=== PATIENT | male | born 1970 | race Caucasian/White ===

== ENCOUNTER 2018-01-25 22:40 | Emergency (ER) | payer SELFPAY ==
[2018-01-25 22:50] VITALS: BP 121/75; PULSE 108; TEMP 100.2; BMI 28.7
--- NOTE | 2018-01-25 23:02 | PDOC ---
History of Present Illness - General Chief Complaint: Pain Stated Complaint: MALAISE/ACHES & PAINS Time Seen by Provider: 01/25/18 22:47 History Source: Patient Exam Limitations: No Limitations - History of Present Illness Initial Comments: 01/25/18 23:11 This is a 47-year-old male comes in with his for evaluation of body aches, joint aches, muscle aches, cough, congestion, upper respiratory tract symptoms. The patient said he has had symptoms times approximately one week now. Patient did not see his primary care doctor and denies any other complaints. Patient is otherwise healthy. PAST MEDICAL HISTORY: no significant history PAST SURGICAL HISTORY: no significant history FAMILY HISTORY: no pertinant history SOCIAL HISTORY: Pt lives with family and is employed. MEDICATIONS: reviewed ALLERGIES: As per nursing notes ROS General: No fevers or chills, no weakness, no weight loss HEENT: No change in vision. + sore throat,. No ear pain CardioVascular: No chest pain or shortness of breath Respiratory:No cough, or wheezing. Gastrointestinal: no nausea, vomiting, diarrhea or constipation, No rectal bleeding Genitourinary: No dysuria, hematuria, or frequency Musculoskeletal: . + joint pain no swelling Neurologic: + headache, vertigo, dizziness or loss of consciousness Psychiatric: nor depression Skin: No rashes or easy bruising Endocrine: no increased thirst or abnormal weight change Allergic: no skin or latex allergy All other systems reviewed and normal Exam: General: Well-nourished well-developed individual, no acute distress HEENT: Throat: Normal, tonsils normal, no erythema or exudate Neck: Supple, no meningeal signs, no lymphadenopathy Eyes::Pupils equal reactive and round, extraocular motion intact Chest: Nontender to palpation Cardiac: S1-S2 normal, regular rate and rhythm, no murmurs rubs or gallops Respiratory: Lungs clear to auscultation bilateral Abdomen: Soft, nondistended, normal bowel sounds, there is no tenderness on palpation diffusely Extremities: Warm, dry, no cyanosis, clubbing, or edema Skin: No rashes Neuro: Alert and oriented x3, CN II - XII intact, nonfocal exam with normal strength, normal sensation, normal reflexes, normal gait, Psych: Normal mood and affect Chest x-ray and air bronchogram on the right questionable bronchitis/versus early pneumonia 01/25/18 23:14 01/25/18 23:49 Patient has a 19,000 white count but there is no left shift as a predominance of lymphs and monocytes Patient given azithromycin 500 mg IV Past History - Past Medical History Allergies/Adverse Reactions: Allergies Allergy/AdvReac Type Severity Reaction Status Date / Time No Known Allergies Allergy Unverified 02/01/16 21:08 Home Medications: Ambulatory Orders Cyclobenzaprine HCl [Flexeril -] 10 mg PO TID #21 tablet 02/01/16 Naproxen [Naprosyn -] 500 mg PO BID #20 tablet 02/01/16 Azithromycin 250 mg PO DAILY #4 tablet 01/26/18 COPD: No - Suicide/Smoking/Psychosocial Hx Smoking History: Current every day smoker Number of Cigarettes Smoked Daily: 5 Information on smoking cessation initiated: Yes 'Breaking Loose' booklet given: 02/01/16 Hx Alcohol Use: No Drug/Substance Use Hx: No Substance Use Type: None *Physical Exam - Vital Signs Last Vital Signs Temp Pulse Resp BP Pulse Ox 100.2 F H 108 H 18 121/75 97 01/25/18 22:41 01/25/18 22:41 01/25/18 22:41 01/25/18 22:41 01/25/18 22:41 ED Treatment Course - LABORATORY CBC & Chemistry Diagram: 01/25/18 23:10 01/25/18 23:10 *DC/Admit/Observation/Transfer Diagnosis at time of Disposition: Bronchitis, okay - Discharge Dispostion Disposition: HOME Condition at time of disposition: Stable Decision to Admit order: No - Prescriptions Prescriptions: Azithromycin 250 mg PO DAILY #4 tablet - Referrals - Patient Instructions Additional Instructions: Tylenol or Motrin as needed for pain or fevers. Take as directed on the bottle Take azithromycin 1 tablet a day for the next 4 days next dose is due this evening.. Return to the emergency department immediately with ANY new, persistent or worsening symptoms. Continue any medications as previously prescribed by your physician. You should follow up with your primary doctor as soon as possible regarding today's emergency department visit. . Please make sure your doctor reviews the results of your emergency evaluation. Thank you for coming to the Emergency Department today for your care. It was a pleasure to see you today. Please note that your evaluation is INCOMPLETE until you follow-up with your doctor. - Post Discharge Activity
[2018-01-25] MEDS ORDERED: ACETAMINOPHEN 500 MG TABLET (FP) PO ONE (23:15)
[2018-01-25 23:25] LABS: HEMATOCRIT 46.8 % (35.4-49); HEMOGLOBIN 16.2 GM/dl (11.7-16.9); MCH 35.7 pg (25.7-33.7); MCHC 34.7 g/dl (32.0-35.9); MEAN CELL VOLUME 103.1 fl (80-96); MEAN PLT VOLUME 8.7 fl (7.5-11.1); PLATELET COUNT 192 K/MM3 (134-434); RBC 4.54 M/mm3 (4.00-5.60); RDW 12.3 % (11.9-15.9); WHITE BLOOD COUNT 19.1 K/mm3 (4.0-10.8)
[2018-01-25] MEDS ORDERED: ACETAMINOPHEN 500 MG TABLET (FP) ONE (23:32)
[2018-01-25 23:37] LABS: PLATELET ESTIMATE ADEQUATE
[2018-01-25 23:38] LABS: ALBUMIN 4.2 g/dl (3.5-5.0); ALK PHOS 62 U/L (32-92); ANION GAP 10 MMOL/L (8-16); BILIRUBIN,TOTAL 0.9 mg/dl (0.2-1.0); BLOOD UREA NITROGEN 10 mg/dl (7-18); CALCIUM 8.9 mg/dl (8.4-10.2); CHLORIDE 104 mmol/L (98-107); CO2 24 mmol/L (22-28); CREATININE 0.9 mg/dl (0.6-1.3); GLUCOSE,RANDOM 99 mg/dl (74-106); POTASSIUM 4.5 mmol/L (3.5-5.1); SGOT/AST 31 U/L (10-42); SGPT/ALT 43 U/L (10-40); SODIUM 138 mmol/L (136-145); TOT PROT 7.2 g/dl (6.4-8.3)
[2018-01-25] MEDS ORDERED: KETOROLAC TROMETHAMINE 30 MG/1 ML VIAL IVPUSH ONE (23:38)
[2018-01-25] MEDS ORDERED: AZITHROMYCIN IVPB 500 MG in DEXTROSE 5%-WATER - 250 ML IVPB ONE (23:48)
[2018-01-25] MEDS ORDERED: AZITHROMYCIN 500 MG VIAL IVPB ONE (23:50)
== END 2018-01-26 01:39 | disposition home or self-care (01) ==
LOC: FER 22:40
PROC: 3E03329 Introduction of Other Anti-infective into Peripheral Vein, Percutaneous Approach (ICD-10-PCS; principal; 2018-01-25)
PROC: 3E0333Z Introduction of Anti-inflammatory into Peripheral Vein, Percutaneous Approach (ICD-10-PCS; 2018-01-25)
DX: J40 Bronchitis, not specified as acute or chronic (principal)
CPT/HCPCS: 36415; 71045-TC-FY; 80053; 83605; 85025; 86140; 87040; 99281-25

== ENCOUNTER 2019-03-30 20:47 | Emergency (ER) | payer OTHER ==
[2019-03-30] MEDS ORDERED: ACETAMINOPHEN 325 MG TABLET (FP) ONE (20:53)
[2019-03-30 20:57] VITALS: BMI 30.1
[2019-03-30] MEDS ORDERED: ACETAMINOPHEN 325 MG TABLET (FP) PO ONE (21:11)
[2019-03-30 22:22] VITALS: TEMP 99.6
--- NOTE | 2019-03-31 01:16 | PDOC ---
Documentation entered by Wandy Lee SCRIBE, acting as scribe for Ema Florence MD. Ema Florence MD: This documentation has been prepared by the Rosa espinoza Mackenzie, SCRIBE, under my direction and personally reviewed by me in its entirety. I confirm that the documentation accurately reflects all work , treatment, procedures, and medical decision making performed by me. History of Present Illness - General Chief Complaint: Cold Symptoms Stated Complaint: F/C/COUGH History Source: Patient Exam Limitations: No Limitations - History of Present Illness Initial Comments: This 48-year-old man without significant past medical history presents with cough productive of whitish sputum for the last 3 days, chest pain with deep breathing that resolved yesterday and fever for the last 48 hours. 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 He denies nausea/vomiting/diarrhea. He states that he self-administered a large amount of guaifenesin yesterday (for example, use Mucinex and Robitussin concurrently) to treat his cough and felt discomfort soon after that. No daily medications No known allergies Smokes approximately half a pack of tobacco cigarettes daily; no daily alcohol although he did drink while visiting friends last night; no other recreational drug use Past History - Past Medical History Allergies/Adverse Reactions: Allergies Allergy/AdvReac Type Severity Reaction Status Date / Time No Known Allergies Allergy Verified 03/30/19 20:48 Home Medications: Ambulatory Orders NK [No Known Home Medication] 03/30/19 COPD: No CHF: No - Psycho Social/Smoking Cessation Hx Smoking History: Never smoked Number of Cigarettes Smoked Daily: 8 'Breaking Loose' booklet given: 02/01/16 Hx Alcohol Use: Yes (OCASIONAL) Drug/Substance Use Hx: No Substance Use Type: None Review of Systems - Review of Systems Able to Perform ROS?: Yes Comments:: 12 point review of systems is negative except for what is noted in the history of present illness *Physical Exam - Vital Signs Last Vital Signs Temp Pulse Resp BP Pulse Ox 101.5 F H 114 H 18 116/78 100 03/30/19 20:48 03/30/19 20:48 03/30/19 20:48 03/30/19 20:48 03/30/19 20:48 - Physical Exam GENERAL: Adult male, alert and oriented x3, no acute distress HEAD: Normal with no signs of trauma. EYES: PERRLA, EOMI, sclera anicteric, conjunctiva clear. ENT: Ears normal, nares patent, oropharynx clear without exudates. Dry mucous membranes. NECK: Normal range of motion, supple without lymphadenopathy, JVD, or masses. LUNGS: Breath sounds equal, clear to auscultation bilaterally. No wheezes, and no crackles. HEART:Regular rate and rhythm, normal S1 and S2 without murmur, rub or gallop. ABDOMEN:.normal bowel sounds soft, mildly distended, marked right lower quadrant tenderness without involuntary guarding but mild rebound tenderness EXTREMITIES: Normal range of motion, no edema. No clubbing or cyanosis. No erythema, or tenderness. NEUROLOGICAL: Cranial nerves II through XII grossly intact. Normal speech. No focal neurological deficits. MUSCULOSKELETAL: Back non-tender to palpation, no CVA tenderness SKIN: Warm, Dry, normal turgor, no rashes or lesions noted. ED Treatment Course - LABORATORY CBC & Chemistry Diagram: 03/31/19 00:45 03/31/19 00:45 - Medications Given in the ED: ED Medications Discontinued Medications Generic Name Dose Route Start Last Admin Trade Name Freq PRN Reason Stop Dose Admin Acetaminophen 650 mg 03/30/19 21:11 03/30/19 21:12 Tylenol - PO 03/30/19 21:12 650 mg ONCE ONE Administration Medical Decision Making - Medical Decision Making This otherwise healthy 48-year-old man, smoker, presents with few day history of productive cough and 1 day history of abdominal discomfort and fever. Exam notable for fever on presentation (101.5 F), clear lung zee and localized right lower quadrant abdominal tenderness. Influenza nasopharyngeal swab sent after triage: Negative for influenza A/ negative for influenza B CBC/chemistry profile/urinalysis sent Although patient appears to have upper respiratory/lower respiratory viral infection, he has a 1 day history of abdominal discomfort and exam notable for localized tenderness in the right lower quadrant. Abdominal/pelvic CT ordered to evaluate for acute appendicitis or other acute pathology localized to the right lower quadrant of his abdomen. CBC notable for normal white blood cell count (6900) with predominance of monocytes on differential, elevated hemoglobin/hematocrit; MCV of 108 Chemistry profile notable for AST of 190 and ALT of 340. Otherwise, chemistry profile and urinalysis are unremarkable Abdominal/pelvic CT performed with preliminary interpretation by Imaging education administrative assistant borderline dilated appendix at 7 mm. The appendix does not fill with contrast. However, the appendix is not discretely inflamed. There is mild edema at the base of the cecum. These findings "could represent early appendicitis" Results discussed with the patient. He was explained that he would likely need to be admitted for evaluation by general surgery and possible repeat of CT to determine if inflammation progressed. The patient states that he is feeling much better and that the discomfort and tenderness that he felt in his abdomen has now resolved. He states that he does not want to be admitted and will sign out AGAINST MEDICAL ADVICE. The dangers of progression of acute appendicitis including perforation and generalized peritonitis/sepsis explained to the patient. He understands the risks of leaving. He states that he will return if he is feeling any recurrence of his pain or if he develops fever Discharge - Discharge Information Problems reviewed: Yes Clinical Impression/Diagnosis: Abdominal pain Qualifiers: Abdominal location: right lower quadrant Qualified Code(s): R10.31 - Right lower quadrant pain Condition: Guarded Disposition: AGAINST MEDICAL ADVICE - Follow up/Referral - Patient Discharge Instructions - Post Discharge Activity Work/Back to School Note: Back to Work
[2019-03-31 01:38] LABS: PH,URINE 5.5 (5.0-8.0); URINE APPEARANCE CLEAR; URINE BILIRUBIN NEGATIVE (NEGATIVE); URINE COLOR DK YELLOW; URINE GLUCOSE (UA) NEGATIVE (NEGATIVE); URINE KETONE NEGATIVE (NEGATIVE); URINE LEUK ESTERASE NEGATIVE (NEGATIVE); URINE NITRITE NEGATIVE (NEGATIVE); URINE PROTEIN TRACE (NEGATIVE)
[2019-03-31 01:44] LABS: BASO % 0.4 % (0-2.0); HEMATOCRIT 50.8 % (35.4-49); LYMPH % 26.5 % (8-40); MCH 36.5 pg (25.7-33.7); MCHC 33.6 g/dl (32.0-35.9); MEAN CELL VOLUME 108.8 fl (80-96); MEAN PLT VOLUME 9.7 fl (7.5-11.1); MONO % 18.7 % (3.8-10.2); NEUT % 53.4 % (42.8-82.8); PLATELET COUNT 147 K/MM3 (134-434); RBC 4.67 M/mm3 (4.00-5.60); RDW 14.1 % (11.9-15.9); WHITE BLOOD COUNT 6.9 K/mm3 (4.0-10.0)
[2019-03-31 02:26] LABS: BLOOD UREA NITROGEN 9.7 mg/dL (7-18); POTASSIUM 3.8 mmol/L (3.5-5.1)
[2019-03-31 02:27] LABS: ALBUMIN 3.5 g/dl (3.4-5.0); BILIRUBIN,TOTAL 0.3 mg/dL (0.2-1); CALCIUM 8.2 mg/dL (8.5-10.1)
[2019-03-31 04:19] VITALS: BP 129/93; PULSE 97
[2019-03-31 05:28] LABS: MACROCYTOSIS 2+; PLATELET ESTIMATE ADEQUATE
== END 2019-03-31 04:24 | disposition left against medical advice (07) ==
LOC: FER 20:47
DX: R10.84 Generalized abdominal pain (principal); R10.31 Right lower quadrant pain
CPT/HCPCS: 36415; 74177-TC; 80053; 81003; 85025; 87086; 87804; 99282-25; Q9967

== ENCOUNTER 2023-09-27 19:50 | Emergency (ER) | payer OTHER ==
[2023-09-27 20:09] VITALS: BP 126/82; PULSE 82; RESP 16; TEMP 98.6; BMI 28.7
[2023-09-27] MEDS ORDERED: IBUPROFEN 400 MG TABLET (FP) PO ONE (21:36)
[2023-09-27] MEDS ORDERED: LIDOCAINE 4% PATCH TP ONE (21:36)
[2023-09-27] MEDS: IBUPROFEN 400 MG TABLET (FP) PO ONE (21:38)
[2023-09-27] MEDS: LIDOCAINE 5% TOPICAL PATCH TP ONE (21:39)
[2023-09-27] MEDS ORDERED: LIDOCAINE PATCH REMOVAL MC SCH (22:00)
== END 2023-09-27 22:29 | disposition home or self-care (01) ==
LOC: JERFT 19:50
DX: M54.42 Lumbago with sciatica, left side (principal)
CPT/HCPCS: 99283-25